=== PATIENT | female | born 1970 | race Caucasian/White ===

== ENCOUNTER → 2017-07-06 | Outpatient (REF) | payer OTHER ==
[2017-07-06 15:11] LABS: ALBUMIN 3.4 GM/DL (3.2-5.2); ALBUMIN/GLOBULIN RATIO 0.94 (1.00-1.93); ALKALINE PHOSPHATASE 117 U/L (45-117); ALT/SGPT 15 U/L (12-78); ANION GAP 5 MEQ/L (8-16); AST/SGOT 8 U/L (7-37); BILIRUBIN,TOTAL 0.3 MG/DL (0.2-1.0); BLOOD UREA NITROGEN 10 MG/DL (7-18); CARBON DIOXIDE LEVEL 31 MEQ/L (21-32); CHLORIDE LEVEL 105 MEQ/L (98-107); CREATININE FOR GFR 0.73 MG/DL (0.55-1.30); GLOMERULAR FILTRATION RATE > 60.0 (>58); GLUCOSE, FASTING 105 MG/DL (70-100); POTASSIUM SERUM 4.4 MEQ/L (3.5-5.1); SODIUM LEVEL 141 MEQ/L (136-145)
[2017-07-06 15:24] LABS: HEMATOCRIT 31.8 % (36.0-47.0); HEMOGLOBIN 8.9 g/dl (12.0-15.5); MEAN CORPUSCULAR HEMOGLOBIN 20.6 pg (27.0-33.0); MEAN CORPUSCULAR VOLUME 73.4 fl (80.0-96.0); PLATELET COUNT, AUTOMATED 413 10^3/uL (150-450); RED BLOOD COUNT 4.33 10^6/uL (4.00-5.40); WHITE BLOOD COUNT 7.6 10^3/uL (4.0-10.0)
== END ==
LOC: M LABDRAWP 14:20
DX: N92.1 Excessive and frequent menstruation with irregular cycle (principal)

== ENCOUNTER → 2017-07-17 | Outpatient (CLI) | payer OTHER | LOC: M WHC 13:03 | DX: N92.1 Excessive and frequent menstruation with irregular cycle (principal) | CPT/HCPCS: 76830 ==

== ENCOUNTER → 2017-10-03 | Outpatient (REF) | payer OTHER ==
[2017-10-05 10:19] LABS: BETA-2 GLYCOPROTEIN I ABY IGA <9 (0-25); BETA-2 GLYCOPROTEIN I ABY IGG <9 (0-20); BETA-2 GLYCOPROTEIN I ABY IGM <9 (0-32); CARDIOLIPIN IGA ANTIBODY <9 APL U/mL (0-11); CARDIOLIPIN IGG ANTIBODY <9 GPL U/mL (0-14); CARDIOLIPIN IGM ANTIBODY <9 MPL U/mL (0-12)
[2017-10-08 00:06] LABS: ANTI THROMBIN 3 ANTIGEN IMMUNO 100 % (72-124); ANTI THROMBIN 3 FUNCT ACTIVITY 108 % (75-135); PROTEIN C ANTIGEN 60 % (60-150); PROTEIN C FUNCTIONAL ACTIVITY 62 % (73-180); PROTEIN S ANTIGEN FREE 37 % (57-157); PROTEIN S ANTIGEN TOTAL 53 % (60-150); PROTEIN S FUNCTIONAL ACTIVITY 31 % (63-140)
[2017-10-09 10:16] LABS: DRVV SCREEN 60.5 SEC
[2017-10-09 10:19] LABS: PTT LUPUS TYPE ANTICOAG SCREEN 1.4 (0-1.2)
[2017-10-09 10:39] LABS: DRVV CONFIRM 46.1 SEC; LUPUS CONFIRM RATIO 1.2
[2017-10-09 10:41] LABS: NORMALIZED RATIO 1.17 (0.00-1.20)
== END ==
LOC: M LAB REF 13:07
DX: I26.99 Other pulmonary embolism without acute cor pulmonale (principal); Z82.49 Family history of ischemic heart disease and other diseases of the circulatory system
CPT/HCPCS: 85302